=== PATIENT | female | born 1975 | race Caucasian/White ===

== ENCOUNTER 2020-08-15 22:11 | Emergency (ER) | payer OTHER ==
[~2020-08-15] VITALS: Ht 170.2 cm; Wt 58.5 kg
== END 2020-08-16 13:56 | disposition home or self-care (01) ==
LOC: ER 22:11
DX: R21 Rash and other nonspecific skin eruption (principal); D69.49 Other primary thrombocytopenia; E87.6 Hypokalemia; Z20.828 Contact with and (suspected) exposure to other viral communicable diseases